=== PATIENT | female | born 1940 | race Caucasian/White ===

== ENCOUNTER 2019-02-06 20:45 | Emergency (ER) | payer OTHER ==
[~2019-02-06] VITALS: Ht 149.9 cm; Wt 610.5 kg
[2019-02-06] MEDS ORDERED: HYZAAR 50-12.51 EACH (21:03)
[2019-02-06] MEDS ORDERED: METFORMIN HCL850 MG (21:03)
== END 2019-02-07 04:51 | disposition home or self-care (01) ==
LOC: ER 20:45
DX: I16.0 Hypertensive urgency (principal); I10 Essential (primary) hypertension